=== PATIENT | female | born 1980 | race African-American/Black ===

== ENCOUNTER 2020-12-27 19:28 | Emergency (ER) | payer OTHER ==
[~2020-12-27] VITALS: Ht 167.6 cm; Wt 65.8 kg
[2020-12-27 19:40] VITALS: BP 126/71
[2020-12-27] MEDS ORDERED: TDAP [DIPH/PERTUSSIS/TET] 0.5 ML VIAL IM ONE ×2 (19:47→20:00)
[2020-12-27] MEDS ORDERED: CEPH500T PO (19:50)
== END 2020-12-27 21:21 | disposition home or self-care (01) ==
LOC: ER 19:34
DX: S61.012A Laceration without foreign body of left thumb without damage to nail, initial encounter (principal); W26.8XXA Contact with other sharp object(s), not elsewhere classified, initial encounter; Y93.89 Activity, other specified; Y92.89 Other specified places as the place of occurrence of the external cause; Y99.8 Other external cause status
CPT/HCPCS: 90715